=== PATIENT | female | born 1955 | race Two or more races ===

== ENCOUNTER → 2018-02-10 | Outpatient (CLI) | payer BC ==
--- NOTE | 2018-02-10 10:27 | RADIOLOGY REPORT (SQ) ---
EXAM DESCRIPTION: RIBS LEFT W/PA CHEST COMPLETED DATE/TIME: 02/10/2018 10:07 am REASON FOR STUDY: PLEURODYNIA R07.81 PLEURODYNIA COMPARISON: None. TECHNIQUE: Frontal view of the chest and additional views of the left ribs acquired. NUMBER OF VIEWS: Five view. LIMITATIONS: None. FINDINGS: FRONTAL CXR: Mild increase parenchymal density at the left lung base, may be on the basis of contusion or atelectasis in view of the history of recent trauma. No pneumothorax. No pleural ef fusion. RIBS: No acute displaced rib fractures. No lytic or blastic bony lesions. OTHER: No other significant finding. IMPRESSION: 1 Mild increase parenchymal density at the left lung base, may be on the basis of contus ion or atelectasis in view of the history of recent trauma. Correlation is suggested and follow-up e xamination in 7 to 10 days to document for interval resolution. 2. No acute displaced rib fracture. COMMENT: SITE OF TRAUMA/COMPLAINT MARKED/STAMP COMPLETED: YES. TECHNICAL DOCUMENTATION: JOB ID: [id number] [employer]- All Rights Reserved Reading location - IP/workstation name: [email or web address]
== END ==
LOC: OD 09:36
PROVIDERS: ATTEND Physician Assistant
DX: R07.81 Pleurodynia (principal); R10.9 Unspecified abdominal pain